=== PATIENT | male | born 1985 | race African-American/Black ===

== ENCOUNTER 2018-07-15 17:10 | Inpatient (IN) | payer MEDICAID, OTHER ==
[~2018-07-15] VITALS: Ht 165.1 cm; Wt 46.9 kg
--- NOTE | 2018-07-15 17:54 | Emergency Room Report ---
History of Present Illness General Chief Complaint: General Complaint Source: Patient (Maranda Lucero) Present Illness HPI 32-year-old male presents to the emergency department brought by [employer] for alleged danger to himself per officer. EMS was called to respond to recall of a person walking in and out of the street. Patient is poorly "cooperative and answering questions and therefore has been brought to the emergency department on 5150 hold for danger to himself. Patient denies SI or HI he does report alcohol use he states he did have some today he is unable to detail the amount. He denies pain, chest pain, shortness of breath, hallucinations, delusions, previous psychiatric hospitalizations, or previous suicidal attempts. Patient endorses that he was walking in and out of the street because he was attempting to cross a busy street. (Maranda Lucero) Allergies: Coded Allergies: SULFAMETHOXAZOLE (Verified Allergy, Intermediate, 07/15/18) TRIMETHOPRIM (Verified Allergy, Intermediate, 07/15/18) Patient History Past Medical History: see triage record Past Surgical History: none Pertinent Family History: none Reviewed Nursing Documentation: PMH: Agreed; PSxH: Agreed (Maranda Lucero) Nursing Documentation-PMH History Of Psychiatric Problem: Yes - bipolar (Maranda Lucero) Review of Systems All Other Systems: negative except mentioned in HPI (Maranda Lucero) Physical Exam Vital Signs Date Time Temp Pulse Resp B/P (MAP) Pulse Ox O2 Delivery O2 Flow Rate FiO2 07/15/18 17:07 97.9 110 16 103/65 98 Room Air Sp02 EP Interpretation: reviewed, normal General Appearance: no apparent distress, alert, GCS 15, non-toxic Head: normocephalic, atraumatic Eyes: bilateral eye normal inspection, bilateral eye PERRL ENT: hearing grossly normal, normal voice Neck: full range of motion Respiratory: chest non-tender, lungs clear, normal breath sounds, speaking full sentences Cardiovascular #1: regular rate, rhythm Gastrointestinal: normal bowel sounds, non tender, soft Musculoskeletal: back normal, gait/station normal, normal range of motion, non- tender Neurologic: alert, oriented x3, responsive, motor strength/tone normal, sensory intact, speech normal, grossly normal Psychiatric: no suicidal/homicidal ideation, other - flat affect, not conversational, withdrawn Skin: normal color, no rash, warm/dry, well hydrated Lymphatic: no adenopathy (Maranda Lucero) Medical Decision Making PA Attestation Dr. hammonds is my supervising Physician whom patient management has been discussed with. (Maranda Lucero) Diagnostic Impression: Primary Impression: Behavioral change Additional Impressions: ARF (acute renal failure) Qualified Codes: N17.9 - Acute kidney failure, unspecified Dehydration Diarrhea in adult patient ER Course 32-year-old male presents to the emergency department brought by [employer] for alleged danger to himself per officer. EMS was called to respond to recall of a person walking in and out of the street. Patient is poorly "cooperative and answering questions and therefore has been brought to the emergency department on 5150 hold for danger to himself. Patient denies SI or HI he does report alcohol use he states he did have some today he is unable to detail the amount. He denies pain, chest pain, shortness of breath, hallucinations, delusions, previous psychiatric hospitalizations, or previous suicidal attempts. Patient endorses that he was walking in and out of the street because he was attempting to cross a busy street. Pt has flat affect. non-aggressive, normal though process, and normal memory. Ddx considered but are not limited to OD, SI/HI, psychosis, UTI, intoxication Vital signs: are WNL, pt. is afebrile H&PE are most consistent with behavioral/mental health issue ORDERS: -CBC, CMP: Pancytopenia, mild hyponatremia, hypoglycemia : 57, ELEVATED Cr: 3.2 and BUN 20 -UA: negative for infection/ unremarkable see results attached. -UDS: Negative -Salicylates and Acetaminophen -WNL -Serum ETOH - No evidence of acute intoxication ED INTERVENTIONS: - Ativan 1mg IM - NS 1000cc x 2 bolus -dextrose 50% 25 cc IV - Calcium Gluconate IV DISPOSITION: patient is medically cleared and will be under ED observation awaiting psychiatric valuation for final disposition. CURRENTLY ON 5150 HOLD Labs Test 07/15/18 17:32 07/15/18 17:38 07/15/18 22:30 Urine Color Pale yellow Urine Appearance Clear Urine pH 6.5 (4.5-8.0) Urine Specific [place] 1.010 (1.005-1.035) Urine Protein 4+ (NEGATIVE) Urine Glucose (UA) Negative (NEGATIVE) Urine Ketones Negative (NEGATIVE) Urine Blood 3+ (NEGATIVE) Urine Nitrite Negative (NEGATIVE) Urine Bilirubin Negative (NEGATIVE) Urine Urobilinogen Normal MG/DL (0.0-1.0) Urine Leukocyte Esterase Negative (NEGATIVE) Urine RBC 2-4 /HPF (0 - 0) Urine WBC 0-2 /HPF (0 - 0) Urine Squamous Epithelial Cells None /LPF (NONE/OCC) Urine Bacteria Few /HPF (NONE) White Blood Count 8.2 K/UL (4.8-10.8) Red Blood Count 3.54 M/UL (4.70-6.10) Hemoglobin 10.0 G/DL (14.2-18.0) Hematocrit 31.7 % (42.0-52.0) Mean Corpuscular Volume 90 FL (80-99) Mean Corpuscular Hemoglobin 28.3 PG (27.0-31.0) Mean Corpuscular Hemoglobin Concent 31.5 G/DL (32.0-36.0) Red Cell Distribution Width 14.8 % (11.6-14.8) Platelet Count 165 K/UL (150-450) Mean Platelet Volume 7.9 FL (6.5-10.1) Neutrophils (%) (Auto) 80.6 % (45.0-75.0) Lymphocytes (%) (Auto) 6.4 % (20.0-45.0) Monocytes (%) (Auto) 9.8 % (1.0-10.0) Eosinophils (%) (Auto) 0.4 % (0.0-3.0) Basophils (%) (Auto) 2.8 % (0.0-2.0) Anion Gap 10 mmol/L (5-15) Total Bilirubin 0.1 MG/DL (0.2-1.0) Aspartate Amino Transf (AST/SGOT) 30 U/L (15-37) Alanine Aminotransferase (ALT/SGPT) 39 U/L (12-78) Alkaline Phosphatase 129 U/L (46-116) Total Creatine Kinase 189 U/L (26-308) Total Protein 6.7 G/DL (6.4-8.2) Albumin 1.3 G/DL (3.4-5.0) Globulin 5.4 g/dL Albumin/Globulin Ratio 0.2 (1.0-2.7) Salicylates Level 2.5 ug/mL (2.8-20) Urine Opiates Screen Negative (NEGATIVE) Acetaminophen Level < 2 MCG/ML (10-30) Urine Barbiturates Screen Negative (NEGATIVE) Phencyclidine (PCP) Screen Negative (NEGATIVE) Urine Amphetamines Screen Negative (NEGATIVE) Urine Benzodiazepines Screen Negative (NEGATIVE) Urine Cocaine Screen Negative (NEGATIVE) Urine Marijuana (THC) Screen Negative (NEGATIVE) Serum Alcohol 3 mg/dL (Maranda Lucero) ER Course Patient signout to me. Police was called initially because he was in the bathroom of a bar for over one hour. When he came out he was shaky and disoriented. He was too traffic. For this reason he was face on the 5150. He was also covered in feces. He was tachycardic in the ER. Improved with IV fluid. He continued to have profuse diarrhea here. He show evidence of acute renal failure and dehydration. Because of this, I will admit patient for IV hydration. Stool cultures sent. (Cullen Hong MD) EKG Diagnostic Results EP Interpretation: Dr. Vera Rate: tachycardiac - 127 bpm Rhythm: NSR ST Segments: no acute changes ASA given to the pt in ED: No PA Scribe Text This Interpretation was scribed by GLADYS Lucero. (Maranda Lucero) Last Vital Signs Date Time Temp Pulse Resp B/P (MAP) Pulse Ox O2 Delivery O2 Flow Rate FiO2 07/15/18 17:23 110 16 Room Air 07/15/18 17:07 97.9 103/65 98 (Maranda Lucero) Status: improved (Cullen Hong MD) Disposition: ADMITTED INPATIENT Condition: Serious Signed Out To: Dr. Reyes (Maranda Luceor) Referrals: NOT CHOSEN IPA/,REFERRING (PCP) Maranda Lucero Jul 15, 2018 17:54 Cullen Hong MD Jul 16, 2018 03:18
[2018-07-15 18:03] LABS: BASOPHILS % (AUTO) 2.8 % (0.0-2.0); EOSINOPHILS % (AUTO) 0.4 % (0.0-3.0); HEMATOCRIT 31.7 % (42.0-52.0); LYMPHOCYTES % (AUTO) 6.4 % (20.0-45.0); MEAN CORPUSCULAR VOLUME 90 FL (80-99); MONOCYTES % (AUTO) 9.8 % (1.0-10.0); NEUTROPHILS % (AUTO) 80.6 % (45.0-75.0); PLATELET COUNT 165 K/UL (150-450); RED BLOOD COUNT 3.54 M/UL (4.70-6.10); RED CELL DISTRIBUTION WIDTH 14.8 % (11.6-14.8); WHITE BLOOD COUNT 8.2 K/UL (4.8-10.8)
[2018-07-15 18:05] LABS: ANION GAP 10 mmol/L (5-15); BLOOD UREA NITROGEN 21 mg/dL (7-18); CALCIUM 6.6 MG/DL (8.5-10.1); CARBON DIOXIDE 17 MMOL/L (21-32); CHLORIDE 106 MMOL/L (98-107); CREATININE 3.2 MG/DL (0.55-1.30); POTASSIUM 4.3 MMOL/L (3.5-5.1); SODIUM 133 MMOL/L (136-145)
[2018-07-15 18:09] LABS: ALANINE AMINOTRANSFERASE 39 U/L (12-78); ALBUMIN 1.3 G/DL (3.4-5.0); ALBUMIN/GLOBULIN RATIO 0.2 (1.0-2.7); ALKALINE PHOSPHATASE 129 U/L (46-116); ASPARTATE AMINO TRANSFERASE 30 U/L (15-37); BILIRUBIN,TOTAL 0.1 MG/DL (0.2-1.0); CREATINE KINASE 189 U/L (26-308)
[2018-07-15 18:28] LABS: APPEARANCE,URINE CLEAR; BILIRUBIN, URINE NEGATIVE (NEGATIVE); COLOR,URINE PALE YELLOW; GLUCOSE, URINE (UA) NEGATIVE (NEGATIVE); KETONES,URINE NEGATIVE (NEGATIVE); LEUKOCYTE ESTERASE ,URINE NEGATIVE (NEGATIVE); NITRITE,URINE NEGATIVE (NEGATIVE); PH,URINE 6.5 (4.5-8.0); PROTEIN,URINE 4+ (NEGATIVE); UROBILINOGEN,URINE NORMAL MG/DL (0.0-1.0)
[2018-07-15 18:43] VITALS: BP 107/66
[2018-07-15] MEDS ORDERED: Calcium Gluconate 10% 1 GM in NS 110 ML IVPB ONE (19:00)
[2018-07-15] MEDS ORDERED: LORazepam Inj 2mg/ml 1ml IM ONE (19:15)
[2018-07-15 20:30] VITALS: BP 94/62
[2018-07-15 21:30] VITALS: BP 100/58
[2018-07-15 22:57] LABS: ANION GAP 10 mmol/L (5-15); BLOOD UREA NITROGEN 17 mg/dL (7-18); CALCIUM 6.2 MG/DL (8.5-10.1); CARBON DIOXIDE 16 MMOL/L (21-32); CHLORIDE 114 MMOL/L (98-107); CREATININE 2.5 MG/DL (0.55-1.30); POTASSIUM 3.5 MMOL/L (3.5-5.1); SODIUM 140 MMOL/L (136-145)
[2018-07-15 23:30] VITALS: BP 107/58
[2018-07-16] VITALS (8 sets, daily range): BP systolic 89–130; BP diastolic 51–73
[2018-07-16] MEDS ORDERED: NKM (07:32)
[2018-07-16] MEDS ORDERED: LORazepam 1mg tab ORAL PRN (11:15)
--- NOTE | 2018-07-16 14:01 | Diagnostic Imaging Report ---
EXAM: US Retroperitoneal Complete, Renal CLINICAL HISTORY: RENAL-A TECHNIQUE: Real-time ultrasound of the retroperitoneum (complete) with image documentation. COMPARISON: No relevant prior studies available. FINDINGS: Right kidney: Right kidney measures 12 x 6.3 x 6.4 cm. Increased echogenicity. Punctate calcification. Mild fullness of the collecting system. Mild right perinephric fluid. No stones. Left kidney: Left kidney measures 11.5 x 5.0 x 5.5 cm. Increased echogenicity. Mild fullness of the collecting system. No stones. Bladder: Bilateral ureteral jets are seen. IMPRESSION: 1. Increased echogenicity bilateral kidneys, maybe medical renal disease. 2. Mild bilateral hydronephrosis. Trace right perinephric fluid. 3. Tiny nonobstructive right renal stone.
--- NOTE | 2018-07-16 17:26 | Consultation ---
Consult Note Consult Note asked to eval for renal failure 32-year-old male presents to the emergency department brought by [employer] for alleged danger to himself per officer. EMS was called to respond to recall of a person walking in and out of the street. Patient is poorly "cooperative and answering questions and therefore has been brought to the emergency department on 5150 hold for danger to himself. Patient denies SI or HI he does report alcohol use he states he did have some today he is unable to detail the amount. He denies pain, chest pain, shortness of breath, hallucinations, delusions, previous psychiatric hospitalizations, or previous suicidal attempts. Patient endorses that he was walking in and out of the street because he was attempting to Coded Allergies: SULFAMETHOXAZOLE (Verified Allergy, Intermediate, 07/15/18) TRIMETHOPRIM (Verified Allergy, Intermediate, 07/15/18) History Of Psychiatric Problem: Yes - bipolar interviewed poor historian examined unkept ! data reviewed Assessment/Plan renal failure ? Acute on Chronic Dehydration Anemia proteinuria and hypoalbuminemia HypoCalcemia corrects for low Albumin hydrate anemia tidwell monitor renal paraneters avoid nephrotoxics urine studies Johnson Thakkar MD Jul 16, 2018 17:26
--- NOTE | 2018-07-16 20:15 | History and Physical Report ---
DATE OF ADMISSION: 07/16/2018 HISTORY OF PRESENT ILLNESS: This is young 32-year-old male, came to the emergency room. The police brought him in to the emergency room for behavioral changes. The patient currently does not know why he is in here. He was also found to have dehydration and some diarrhea. PAST MEDICAL HISTORY: The patient unable to give history. PHYSICAL EXAMINATION: GENERAL: This is a young male, who is currently in the bed, comfortable, alert, and oriented x3. VITAL SIGNS: Blood pressure is 110/73, pulse 108, respiration is 16, and temperature is 98.8 degrees. HEENT: NAD. CHEST: Bilaterally clear. CARDIOVASCULAR: Regular rhythm. No gallop. No murmur. ABDOMEN: Soft. Positive bowel sounds. EXTREMITIES: CCE. NEUROLOGICAL: No focal deficit. LABORATORY DATA: White counts are 8.2, hemoglobin 10, hematocrit 32, and platelets are 165,000. Chemistry panel, BUN 17; creatinine 2.5; yesterday creatinine 3.2, currently 2.5; sodium 140; and potassium 3.5. ASSESSMENT: 1. Altered mental status. 2. Confusion. 3. Psychosis. 4. Renal failure. PLAN: We will continue added IV fluid. Nephrology consult and psych consult. Also, added Ativan p.r.n. for agitation. Duong Christine M.D. DR: ALCON JOB#: [id number] CC: BRIAN
[2018-07-17] VITALS: BP 130/71
[2018-07-17 04:00] VITALS: BP 126/69
[2018-07-17 05:53] LABS: BASOPHILS % (AUTO) 0.9 % (0.0-2.0); EOSINOPHILS % (AUTO) 1.4 % (0.0-3.0); HEMOGLOBIN 9.1 G/DL (14.2-18.0); LYMPHOCYTES % (AUTO) 29.4 % (20.0-45.0); MEAN CORPUSCULAR VOLUME 89 FL (80-99); MONOCYTES % (AUTO) 11.5 % (1.0-10.0); NEUTROPHILS % (AUTO) 56.8 % (45.0-75.0); PLATELET COUNT 157 K/UL (150-450); RED BLOOD COUNT 3.26 M/UL (4.70-6.10); RED CELL DISTRIBUTION WIDTH 14.9 % (11.6-14.8); WHITE BLOOD COUNT 4.3 K/UL (4.8-10.8)
[2018-07-17 06:32] LABS: % IRON SATURATION 96 % (15-50); IRON 72 ug/dL (50-175); TOTAL IRON BINDING CAPACITY 75 ug/dL (250-450)
[2018-07-17 06:40] LABS: CREATINE KINASE 155 U/L (26-308); GAMMA GLUTAMYL TRANSPEPTIDASE 85 U/L (5-85); PHOSPHORUS 3.2 MG/DL (2.5-4.9)
[2018-07-17 06:45] LABS: ALANINE AMINOTRANSFERASE 59 U/L (12-78); ALBUMIN/GLOBULIN RATIO 0.2 (1.0-2.7); ALKALINE PHOSPHATASE 132 U/L (46-116); ANION GAP 9 mmol/L (5-15); ASPARTATE AMINO TRANSFERASE 57 U/L (15-37); BILIRUBIN,TOTAL 0.2 MG/DL (0.2-1.0); BLOOD UREA NITROGEN 20 mg/dL (7-18); CALCIUM 7.7 MG/DL (8.5-10.1); CARBON DIOXIDE 18 MMOL/L (21-32); CHLORIDE 113 MMOL/L (98-107); CHOLESTEROL 221 MG/DL (< 200); CREATININE 3.3 MG/DL (0.55-1.30); FERRITIN 1615 NG/ML (8-388); HDL CHOLESTEROL 73 MG/DL (40-60); POTASSIUM 4.9 MMOL/L (3.5-5.1); SODIUM 140 MMOL/L (136-145); TRIGLYCERIDES 249 MG/DL (30-150)
[2018-07-17 07:34] VITALS: BP 128/79
[2018-07-17] MEDS ORDERED: LORazepam 1mg tab ORAL PRN (11:15)
[2018-07-17 12:00] VITALS: BP 118/60
--- NOTE | 2018-07-17 13:30 | Progress Note ---
DATE: 07/17/2018 SUBJECTIVE: This is a young male. Currently awake, comfortable, confused. OBJECTIVE: VITAL SIGNS: Blood pressure 128/79, pulse 82, no fever. CHEST: Bilaterally clear. CARDIOVASCULAR: Regular rhythm. ABDOMEN: Soft. EXTREMITIES: No CCE. NEUROLOGIC: The patient is in no focal deficit. LABORATORY DATA: His hemoglobin slightly dropped from 10 to 9. Chemistry panel, BUN 28, creatinine 3.3. ASSESSMENT AND PLAN: 1. Acute renal failure. 2. Psychosis, improved. 3. Depression. Continue current psychotropic, IV fluids, psych is on consult. Duong Christine M.D. DR: FRANCOIS JOB#: [id number] CC:
--- NOTE | 2018-07-17 14:30 | Nephrology Progress Note ---
Assessment/Plan Problem List: (1) ARF (acute renal failure) (2) Dehydration (3) Anemia (4) HIV disease (5) Elevated hemoglobin A1c (6) Proteinuria Assessment renal failure ? Acute on Chronic Dehydration Anemia proteinuria and hypoalbuminemia HypoCalcemia corrects for low Albumin Plan hydrate 24 h urine protein kidney BELKIS anemia tidwell monitor renal paraneters avoid nephrotoxics urine studies ID advise? Subjective ROS Limited/Unobtainable: No Constitutional: Reports: malaise Objective Objective Last 24 Hour Vital Signs Date Time Temp Pulse Resp B/P (MAP) Pulse Ox O2 Delivery O2 Flow Rate FiO2 07/17/18 12:00 97.3 85 17 118/60 (79) 95 07/17/18 09:00 Room Air 07/17/18 08:32 98.3 07/17/18 07:34 98.3 82 16 128/79 (95) 100 07/17/18 04:00 98.2 76 18 126/69 (88) 100 76 07/17/18 00:00 98.2 78 18 130/71 (90) 100 78 07/16/18 21:00 Room Air 07/16/18 20:00 98.1 100 18 128/64 (85) 99 100 07/16/18 16:00 97.8 95 18 130/70 (90) 97 95 Intake and Output 07/16/18 07/17/18 18:59 06:59 Intake Total 1200 ml 400 ml Output Total 1800 ml 1650 ml Balance -600 ml -1250 ml Intake Oral 1200 ml 400 ml Output Urine Total 1800 ml 1650 ml # Voids 2 Laboratory Tests 07/16/18 17:48: C-Reactive Protein, Quantitative < 0.4, HIV (1&2) Antibody Rapid Preliminary positiveH 07/16/18 18:30: Urine Random Sodium 108 07/17/18 04:00: Urine Eosinophils None seen 07/17/18 05:15: White Blood Count 4.3L, Red Blood Count 3.26L, Hemoglobin 9.1L, Hematocrit 29.0L , Mean Corpuscular Volume 89, Mean Corpuscular Hemoglobin 27.9, Mean Corpuscular Hemoglobin Concent 31.5L, Red Cell Distribution Width 14.9H, Platelet Count 157, Mean Platelet Volume 7.5, Neutrophils (%) (Auto) 56.8, Lymphocytes (%) (Auto) 29.4, Monocytes (%) (Auto) 11.5H, Eosinophils (%) (Auto) 1.4, Basophils (%) (Auto) 0.9, Sodium Level 140, Potassium Level 4.9, Chloride Level 113H, Carbon Dioxide Level 18L, Anion Gap 9, Blood Urea Nitrogen 20H, Creatinine 3.3H, Estimat Glomerular Filtration Rate 26.8, Glucose Level 87, Hemoglobin A1c 6.4H, Uric Acid 5.3, Calcium Level 7.7#L, Phosphorus Level 3.2, Magnesium Level 1.4L, Iron Level 72, Total Iron Binding Capacity 75L, Percent Iron Saturation 96H, Unsaturated Iron Binding 3L, Ferritin 1615H, Total Bilirubin 0.2, Gamma Glutamyl Transpeptidase 85, Aspartate Amino Transf (AST/ SGOT) 57H, Alanine Aminotransferase (ALT/SGPT) 59, Alkaline Phosphatase 132H, Total Creatine Kinase 155, Pro-B-Type Natriuretic Peptide 1787H, Total Protein 6.0L, Albumin 1.0L, Globulin 5.0, Albumin/Globulin Ratio 0.2L, Triglycerides Level 249H, Cholesterol Level 221H, LDL Cholesterol 118H, HDL Cholesterol 73H, Cholesterol/HDL Ratio 3.0L, Vitamin B12 Level 472, Folate 9.5, Thyroid Stimulating Hormone (TSH) 1.038 Height (Feet): 5 Height (Inches): 10.00 Weight (Pounds): 140 General Appearance: no apparent distress Cardiovascular: tachycardia Respiratory/Chest: decreased breath sounds Abdomen: distended Johnson Thakkar MD Jul 17, 2018 14:30
[2018-07-17 15:51] VITALS: BP 122/68
[2018-07-17 19:36] VITALS: BP 111/72
[2018-07-17] MEDS ORDERED: Tamsulosin 0.4mg cap ORAL SCH (21:00)
--- NOTE | 2018-07-17 21:58 | Consultation ---
History of Present Illness General Chief Complaint: General Complaint Present Illness HPI 32-year-old male with hx of depression and mmp including hiv and alcohol abuse presents to the emergency department brought by [employer] for danger to himself. The pt was placed on a hold for dts. the pt was admitted to med floor. the pt stated that he was homeless and has no place to go. the pt stated that he hears voices at times. the pt was unable to elaborate. the pt stated that he was suicidal but no plan. the pt stopped taking all his meds, including his HAART meds. the pt stated that he ran out of meds. the pt has been abusing alcohol. the pt denied using illicit drugs including MJ. Allergies: Coded Allergies: SULFAMETHOXAZOLE (Verified Allergy, Intermediate, 07/15/18) TRIMETHOPRIM (Verified Allergy, Intermediate, 07/15/18) Medication History Scheduled No Known Medications* (NKM - No Known Medications*), 0 ., (Reported) Patient History History Provided By: Patient, Medical Record, PMD Healthcare decision maker Resuscitation status Full Code Advanced Directive on File Past Medical/Surgical History Past Medical/Surgical History: (1) Dehydration (2) Diarrhea in adult patient (3) Behavioral change (4) ARF (acute renal failure) (5) Anemia (6) HIV disease (7) Elevated hemoglobin A1c (8) Proteinuria Review of Systems Psychiatric: Reports: prior hx, anxiety, depressed feelings, emotional problems Physical Exam General Appearance: no apparent distress, alert Neurologic: oriented x 3, responsive, depressed affect Last 24 Hour Vital Signs Date Time Temp Pulse Resp B/P (MAP) Pulse Ox O2 Delivery O2 Flow Rate FiO2 07/17/18 21:00 Room Air 07/17/18 19:36 97.7 92 18 111/72 (85) 97 07/17/18 15:51 97.8 84 18 122/68 (86) 100 07/17/18 12:00 97.3 85 17 118/60 (79) 95 07/17/18 09:00 Room Air 07/17/18 08:32 98.3 07/17/18 07:34 98.3 82 16 128/79 (95) 100 07/17/18 04:00 98.2 76 18 126/69 (88) 100 76 07/17/18 00:00 98.2 78 18 130/71 (90) 100 78 Intake and Output 07/16/18 07/17/18 19:00 07:00 Intake Total 1200 ml 400 ml Output Total 1800 ml 1650 ml Balance -600 ml -1250 ml Intake Oral 1200 ml 400 ml Output Urine Total 1800 ml 1650 ml # Voids 2 Laboratory Tests Test 07/17/18 04:00 07/17/18 05:15 Urine Eosinophils None seen (NONE SEEN) White Blood Count 4.3 K/UL (4.8-10.8) L Red Blood Count 3.26 M/UL (4.70-6.10) L Hemoglobin 9.1 G/DL (14.2-18.0) L Hematocrit 29.0 % (42.0-52.0) L Mean Corpuscular Volume 89 FL (80-99) Mean Corpuscular Hemoglobin 27.9 PG (27.0-31.0) Mean Corpuscular Hemoglobin Concent 31.5 G/DL (32.0-36.0) L Red Cell Distribution Width 14.9 % (11.6-14.8) H Platelet Count 157 K/UL (150-450) Mean Platelet Volume 7.5 FL (6.5-10.1) Neutrophils (%) (Auto) 56.8 % (45.0-75.0) Lymphocytes (%) (Auto) 29.4 % (20.0-45.0) Monocytes (%) (Auto) 11.5 % (1.0-10.0) H Eosinophils (%) (Auto) 1.4 % (0.0-3.0) Basophils (%) (Auto) 0.9 % (0.0-2.0) Sodium Level 140 MMOL/L (136-145) Potassium Level 4.9 MMOL/L (3.5-5.1) Chloride Level 113 MMOL/L (98-107) H Carbon Dioxide Level 18 MMOL/L (21-32) L Anion Gap 9 mmol/L (5-15) Blood Urea Nitrogen 20 mg/dL (7-18) H Creatinine 3.3 MG/DL (0.55-1.30) H Estimat Glomerular Filtration Rate 26.8 mL/min (>60) Glucose Level 87 MG/DL (74-106) Hemoglobin A1c 6.4 % (4.3-6.0) H Uric Acid 5.3 MG/DL (2.6-7.2) Calcium Level 7.7 MG/DL (8.5-10.1) #L Phosphorus Level 3.2 MG/DL (2.5-4.9) Magnesium Level 1.4 MG/DL (1.8-2.4) L Iron Level 72 ug/dL (50-175) Total Iron Binding Capacity 75 ug/dL (250-450) L Percent Iron Saturation 96 % (15-50) H Unsaturated Iron Binding 3 ug/dL (112-346) L Ferritin 1615 NG/ML (8-388) H Total Bilirubin 0.2 MG/DL (0.2-1.0) Gamma Glutamyl Transpeptidase 85 U/L (5-85) Aspartate Amino Transf (AST/SGOT) 57 U/L (15-37) H Alanine Aminotransferase (ALT/SGPT) 59 U/L (12-78) Alkaline Phosphatase 132 U/L (46-116) H Total Creatine Kinase 155 U/L (26-308) Pro-B-Type Natriuretic Peptide 1787 pg/mL (0-125) H Total Protein 6.0 G/DL (6.4-8.2) L Albumin 1.0 G/DL (3.4-5.0) L Globulin 5.0 g/dL Albumin/Globulin Ratio 0.2 (1.0-2.7) L Triglycerides Level 249 MG/DL (30-150) H Cholesterol Level 221 MG/DL (< 200) H LDL Cholesterol 118 mg/dL (<100) H HDL Cholesterol 73 MG/DL (40-60) H Cholesterol/HDL Ratio 3.0 (3.3-4.4) L Vitamin B12 Level 472 PG/ML (193-986) Folate 9.5 NG/ML (8.6-58.9) Thyroid Stimulating Hormone (TSH) 1.038 uiU/mL (0.358-3.740) Height (Feet): 5 Height (Inches): 10.00 Weight (Pounds): 140 Medications Current Medications Medications (Trade) Dose Ordered Sig/Bridget Route PRN Reason Start Time Stop Time Status Last Admin Dose Admin Acetaminophen (Tylenol) 650 mg Q4H PRN ORAL Mild Pain/Temp > 100.5 07/17/18 06:45 08/15/18 10:44 07/17/18 08:02 Lorazepam (Ativan) 1 mg Q6H PRN ORAL For Anxiety 07/17/18 11:15 07/23/18 11:14 Sodium Chloride 1,000 ml @ 100 mls/hr Q10H IV 07/17/18 06:15 08/15/18 10:44 07/17/18 17:04 Tamsulosin HCl (Flomax) 0.4 mg BEDTIME ORAL 07/17/18 21:00 08/16/18 20:59 07/17/18 21:05 Assessment/Plan Problem List: (1) MDD (major depressive disorder), recurrent episode ICD Codes: F33.9 - Major depressive disorder, recurrent, unspecified SNOMED: 736910681 (2) Alcohol abuse ICD Codes: F10.10 - Alcohol abuse, uncomplicated SNOMED: 81794804 Assessment/Plan larry terry provided ro/Zhanna Correa MD Jul 17, 2018 21:58
--- NOTE | 2018-07-17 22:00 | Consultation ---
History of Present Illness General Chief Complaint: General Complaint Present Illness Allergies: Coded Allergies: SULFAMETHOXAZOLE (Verified Allergy, Intermediate, 07/15/18) TRIMETHOPRIM (Verified Allergy, Intermediate, 07/15/18) Medication History Scheduled No Known Medications* (NKM - No Known Medications*), 0 ., (Reported) Patient History Healthcare decision maker Resuscitation status Full Code Advanced Directive on File Physical Exam Last 24 Hour Vital Signs Date Time Temp Pulse Resp B/P (MAP) Pulse Ox O2 Delivery O2 Flow Rate FiO2 07/17/18 21:00 Room Air 07/17/18 19:36 97.7 92 18 111/72 (85) 97 07/17/18 15:51 97.8 84 18 122/68 (86) 100 07/17/18 12:00 97.3 85 17 118/60 (79) 95 07/17/18 09:00 Room Air 07/17/18 08:32 98.3 07/17/18 07:34 98.3 82 16 128/79 (95) 100 07/17/18 04:00 98.2 76 18 126/69 (88) 100 76 07/17/18 00:00 98.2 78 18 130/71 (90) 100 78 Intake and Output 07/16/18 07/17/18 19:00 07:00 Intake Total 1200 ml 400 ml Output Total 1800 ml 1650 ml Balance -600 ml -1250 ml Intake Oral 1200 ml 400 ml Output Urine Total 1800 ml 1650 ml # Voids 2 Laboratory Tests Test 07/17/18 04:00 07/17/18 05:15 Urine Eosinophils None seen (NONE SEEN) White Blood Count 4.3 K/UL (4.8-10.8) L Red Blood Count 3.26 M/UL (4.70-6.10) L Hemoglobin 9.1 G/DL (14.2-18.0) L Hematocrit 29.0 % (42.0-52.0) L Mean Corpuscular Volume 89 FL (80-99) Mean Corpuscular Hemoglobin 27.9 PG (27.0-31.0) Mean Corpuscular Hemoglobin Concent 31.5 G/DL (32.0-36.0) L Red Cell Distribution Width 14.9 % (11.6-14.8) H Platelet Count 157 K/UL (150-450) Mean Platelet Volume 7.5 FL (6.5-10.1) Neutrophils (%) (Auto) 56.8 % (45.0-75.0) Lymphocytes (%) (Auto) 29.4 % (20.0-45.0) Monocytes (%) (Auto) 11.5 % (1.0-10.0) H Eosinophils (%) (Auto) 1.4 % (0.0-3.0) Basophils (%) (Auto) 0.9 % (0.0-2.0) Sodium Level 140 MMOL/L (136-145) Potassium Level 4.9 MMOL/L (3.5-5.1) Chloride Level 113 MMOL/L (98-107) H Carbon Dioxide Level 18 MMOL/L (21-32) L Anion Gap 9 mmol/L (5-15) Blood Urea Nitrogen 20 mg/dL (7-18) H Creatinine 3.3 MG/DL (0.55-1.30) H Estimat Glomerular Filtration Rate 26.8 mL/min (>60) Glucose Level 87 MG/DL (74-106) Hemoglobin A1c 6.4 % (4.3-6.0) H Uric Acid 5.3 MG/DL (2.6-7.2) Calcium Level 7.7 MG/DL (8.5-10.1) #L Phosphorus Level 3.2 MG/DL (2.5-4.9) Magnesium Level 1.4 MG/DL (1.8-2.4) L Iron Level 72 ug/dL (50-175) Total Iron Binding Capacity 75 ug/dL (250-450) L Percent Iron Saturation 96 % (15-50) H Unsaturated Iron Binding 3 ug/dL (112-346) L Ferritin 1615 NG/ML (8-388) H Total Bilirubin 0.2 MG/DL (0.2-1.0) Gamma Glutamyl Transpeptidase 85 U/L (5-85) Aspartate Amino Transf (AST/SGOT) 57 U/L (15-37) H Alanine Aminotransferase (ALT/SGPT) 59 U/L (12-78) Alkaline Phosphatase 132 U/L (46-116) H Total Creatine Kinase 155 U/L (26-308) Pro-B-Type Natriuretic Peptide 1787 pg/mL (0-125) H Total Protein 6.0 G/DL (6.4-8.2) L Albumin 1.0 G/DL (3.4-5.0) L Globulin 5.0 g/dL Albumin/Globulin Ratio 0.2 (1.0-2.7) L Triglycerides Level 249 MG/DL (30-150) H Cholesterol Level 221 MG/DL (< 200) H LDL Cholesterol 118 mg/dL (<100) H HDL Cholesterol 73 MG/DL (40-60) H Cholesterol/HDL Ratio 3.0 (3.3-4.4) L Vitamin B12 Level 472 PG/ML (193-986) Folate 9.5 NG/ML (8.6-58.9) Thyroid Stimulating Hormone (TSH) 1.038 uiU/mL (0.358-3.740) Height (Feet): 5 Height (Inches): 10.00 Weight (Pounds): 140 Medications Current Medications Medications (Trade) Dose Ordered Sig/Bridget Route PRN Reason Start Time Stop Time Status Last Admin Dose Admin Acetaminophen (Tylenol) 650 mg Q4H PRN ORAL Mild Pain/Temp > 100.5 07/17/18 06:45 08/15/18 10:44 07/17/18 08:02 Lorazepam (Ativan) 1 mg Q6H PRN ORAL For Anxiety 07/17/18 11:15 07/23/18 11:14 Sodium Chloride 1,000 ml @ 100 mls/hr Q10H IV 07/17/18 06:15 08/15/18 10:44 07/17/18 17:04 Tamsulosin HCl (Flomax) 0.4 mg BEDTIME ORAL 07/17/18 21:00 08/16/18 20:59 07/17/18 21:05 Assessment/Plan Assessment/Plan Hematology/Oncology Consultation Requesting MD: Emmett Watters Date of Service: 07/17/18 Reason for consultation: Anemia HPI:This is a 32-year-old male presents to the emergency department brought by [employer] for alleged danger to himself per officer. EMS was called to respond to recall of a person walking in and out of the street. Patient is poorly "cooperative and answering questions and therefore has been brought to the emergency department on 5150 hold for danger to himself. Patient denies SI or HI he does report alcohol use he states he did have some today he is unable to detail the amount. He denies pain, chest pain, shortness of breath, hallucinations, delusions, previous psychiatric hospitalizations, or previous suicidal attempts. Hematology/Oncology was consulted for Anemia, Hgb 10. Allergies: SULFAMETHOXAZOLE , TRIMETHOPRIM PAST MEDICAL HISTORY: The patient unable to give history. HOME MEDS : reviewed PHYSICAL EXAMINATION: GENERAL: This is a young male, who is currently in the bed, comfortable, alert, and oriented x3. VITAL SIGNS: Blood pressure is 110/73, pulse 108, respiration is 16, and temperature is 98.8 degrees. HEENT: NAD. CHEST: Bilaterally clear. CARDIOVASCULAR: Regular rhythm. No gallop. No murmur. ABDOMEN: Soft. Positive bowel sounds. EXTREMITIES: CCE. NEUROLOGICAL: No focal deficit. LABORATORY DATA: White counts are 8.2, hemoglobin 10, hematocrit 32, and platelets are 165,000. Chemistry panel, BUN 17; creatinine 2.5; yesterday creatinine 3.2, currently 2.5; sodium 140; and potassium 3.5. ASSESSMENT/RECOMMENDATIONS: # Anemia of chronic disease (or of iron deficiency) due to underlying chronic medical issues, multifactorial --> Anemia workup has been ordered --> No evidence of hemolysis is noted, peripheral smear has been reviewed. --> Hgb goal >7. Transfuse prn. --> Epogen or iron at this time is not particularly indicated --> Medications have been reviewed #ARF (acute renal failure) --> Nephrology consult # Dehydration --->we will continue added IV fluid # HIV disease # Elevated hemoglobin A1c # Proteinuria The timing of this note does not necessarily reflect the time of the patient was seen Greatly appreciate consultation! Eliud Lorenz MD Jul 17, 2018 22:00
[2018-07-18] VITALS: BP 131/66
[2018-07-18 04:00] VITALS: BP 125/69
[2018-07-18 09:00] VITALS: BP 113/66
[2018-07-18 12:00] VITALS: BP 118/65
--- NOTE | 2018-07-18 13:13 | Nephrology Progress Note ---
Assessment/Plan Problem List: (1) ARF (acute renal failure) (2) Dehydration (3) Anemia (4) HIV disease (5) Elevated hemoglobin A1c (6) Proteinuria Assessment renal failure ? Acute on Chronic Dehydration Anemia proteinuria and hypoalbuminemia HypoCalcemia corrects for low Albumin Plan hydrate 24 h urine protein anemia tidwell monitor renal paraneters avoid nephrotoxics urine studies ID advise? BELKIS: 1. Increased echogenicity bilateral kidneys, maybe medical renal disease. 2. Mild bilateral hydronephrosis. Trace right perinephric fluid. 3. Tiny nonobstructive right renal stone. Subjective ROS Limited/Unobtainable: No Constitutional: Reports: malaise Objective Objective Last 24 Hour Vital Signs Date Time Temp Pulse Resp B/P (MAP) Pulse Ox O2 Delivery O2 Flow Rate FiO2 07/18/18 12:00 98.3 89 19 118/65 (82) 96 07/18/18 09:00 Room Air 07/18/18 09:00 98.6 96 20 113/66 (82) 96 07/18/18 04:00 97.7 71 18 125/69 (87) 98 07/18/18 00:00 97.9 85 18 131/66 (87) 98 07/17/18 21:00 Room Air 07/17/18 19:36 97.7 92 18 111/72 (85) 97 07/17/18 15:51 97.8 84 18 122/68 (86) 100 Intake and Output 07/17/18 07/18/18 18:59 06:59 Intake Total 2900 ml 2000 ml Output Total 2200 ml Balance 2900 ml -200 ml Intake Oral 1000 ml IV Total 900 ml 1000 ml Other 2000 ml Output Urine Total 2200 ml # Bowel Movements 4 5 Height (Feet): 5 Height (Inches): 10.00 Weight (Pounds): 140 General Appearance: no apparent distress Cardiovascular: normal rate Abdomen: soft Objective no change Johnson Thakkar MD Jul 18, 2018 13:13
--- NOTE | 2018-07-18 13:14 | General Progress Note ---
Assessment/Plan Problem List: (1) MDD (major depressive disorder), recurrent episode ICD Codes: F33.9 - Major depressive disorder, recurrent, unspecified SNOMED: 059791593 (2) Alcohol abuse ICD Codes: F10.10 - Alcohol abuse, uncomplicated SNOMED: 15962830 Status: stable, progressing Assessment/Plan depakote risperdal provided ro/st Subjective Neurologic/Psychiatric: Reports: anxiety, depressed, emotional problems Allergies: Coded Allergies: SULFAMETHOXAZOLE (Verified Allergy, Intermediate, 07/15/18) TRIMETHOPRIM (Verified Allergy, Intermediate, 07/15/18) Objective Last 24 Hour Vital Signs Date Time Temp Pulse Resp B/P (MAP) Pulse Ox O2 Delivery O2 Flow Rate FiO2 07/18/18 12:00 98.3 89 19 118/65 (82) 96 07/18/18 09:00 Room Air 07/18/18 09:00 98.6 96 20 113/66 (82) 96 07/18/18 04:00 97.7 71 18 125/69 (87) 98 07/18/18 00:00 97.9 85 18 131/66 (87) 98 07/17/18 21:00 Room Air 07/17/18 19:36 97.7 92 18 111/72 (85) 97 07/17/18 15:51 97.8 84 18 122/68 (86) 100 Intake and Output 07/17/18 07/18/18 18:59 06:59 Intake Total 2900 ml 2000 ml Output Total 2200 ml Balance 2900 ml -200 ml Intake Oral 1000 ml IV Total 900 ml 1000 ml Other 2000 ml Output Urine Total 2200 ml # Bowel Movements 4 5 Height (Feet): 5 Height (Inches): 10.00 Weight (Pounds): 140 General Appearance: no apparent distress, alert, thin Neurologic: oriented x 3, responsive, depressed affect Zhanna Tucker MD Jul 18, 2018 13:14
[2018-07-18] MEDS ORDERED: Tamsulosin 0.4mg cap ORAL SCH (13:15)
[2018-07-18 16:00] VITALS: BP 117/68
[2018-07-18] MEDS: Tamsulosin 0.4mg cap ORAL SCH (17:13)
--- NOTE | 2018-07-18 18:15 | Progress Note ---
DATE: 07/18/2018 SUBJECTIVE: This is a young male, came with acute renal failure, altered mental status. The patient is currently doing better, Hemoglobin became low. BUN and creatinine still getting high. ASSESSMENT: 1. Altered mental status. 2. Acute renal failure. 3. Psychosis. PLAN: 1. Continue IV fluid. 2. Nephrology on the case. 3. The patient may need hemodialysis. Duong Christine M.D. DR: Genevieve JOB#: [id number] CC:
[2018-07-18 20:00] VITALS: BP 116/79
--- NOTE | 2018-07-18 20:04 | General Progress Note ---
Assessment/Plan Assessment/Plan ASSESSMENT/RECOMMENDATIONS: # Anemia of chronic disease due to underlying chronic medical issues, multifactorial --> Anemia workup has been ordered and reviewed, and is cw acd --> No evidence of hemolysis is noted, peripheral smear has been reviewed. --> Hgb goal >7. Transfuse prn. --> Epogen or iron at this time is not particularly indicated --> Medications have been reviewed # Leukopenia likely medications or HIV/AIds related --> obtain ID eval on a prn basis # ARF (acute renal failure) --> Nephrology consult --> appreciate recs # Dehydration --->we will continue added IV fluid # HIV disease # Elevated hemoglobin A1c # Proteinuria The timing of this note does not necessarily reflect the time of the patient was seen Greatly appreciate consultation! Subjective HEENT: Denies: no symptoms, eye pain, blurred vision, tearing, double vision, ear pain, ear discharge, nose pain, nose congestion, throat pain, throat swelling, mouth pain, mouth swelling, other Cardiovascular: Denies: no symptoms, chest pain, edema, irregular heart rate, lightheadedness, palpitations, syncope, other Respiratory: Denies: no symptoms, cough, orthopnea, shortness of breath, SOB with excertion, SOB at rest, sputum, stridor, wheezing, other Gastrointestinal/Abdominal: Denies: no symptoms, abdomen distended, abdominal pain, black stools, tarry stools, blood in stool, constipated, diarrhea, difficulty swallowing, nausea, poor appetite, poor fluid intake, rectal bleeding , vomiting, other Genitourinary: Denies: no symptoms, burning, discharge, frequency, flank pain, hematuria, incontinence, pain, urgency, other Neurologic/Psychiatric: Denies: no symptoms, anxiety, depressed, emotional problems, headache, numbness, paresthesia, pre-existing deficit, seizure, tingling, tremors, weakness, other Endocrine: Denies: no symptoms, excessive sweating, flushing, intolerance to cold, intolerance to heat, increased hunger, increased thirst, increased urine, unexplained weight gain, unexplained weight loss, other Hematologic/Lymphatic: Denies: no symptoms, anemia, easy bleeding, easy bruising, other Allergies: Coded Allergies: SULFAMETHOXAZOLE (Verified Allergy, Intermediate, 07/15/18) TRIMETHOPRIM (Verified Allergy, Intermediate, 07/15/18) Subjective 2/4: no events, platelets stable, hiv was positive, renal evaluated, hgb lower today Objective Last 24 Hour Vital Signs Date Time Temp Pulse Resp B/P (MAP) Pulse Ox O2 Delivery O2 Flow Rate FiO2 07/18/18 16:00 98.8 92 20 117/68 (84) 98 07/18/18 12:00 98.3 89 19 118/65 (82) 96 07/18/18 09:00 Room Air 07/18/18 09:00 98.6 96 20 113/66 (82) 96 07/18/18 04:00 97.7 71 18 125/69 (87) 98 07/18/18 00:00 97.9 85 18 131/66 (87) 98 07/17/18 21:00 Room Air Intake and Output 07/17/18 07/18/18 19:00 07:00 Intake Total 2975 ml 1925 ml Output Total 2200 ml Balance 2975 ml -275 ml Intake Oral 1000 ml IV Total 975 ml 925 ml Other 2000 ml Output Urine Total 2200 ml # Bowel Movements 4 5 Height (Feet): 5 Height (Inches): 10.00 Weight (Pounds): 140 General Appearance: alert Objective PHYSICAL EXAMINATION: GENERAL: This is a young male, who is currently in the bed, comfortable, alert, and oriented x3. VITAL SIGNS: Reviewed and are wnl HEENT: NAD. CHEST: Bilaterally clear. CARDIOVASCULAR: Regular rhythm. No gallop. No murmur. ABDOMEN: Soft. Positive bowel sounds. EXTREMITIES: CCE. NEUROLOGICAL: No focal deficit. Eliud Lorenz MD Jul 18, 2018 20:04
[2018-07-18] MEDS: Depakote ER 250mg tab ORAL SCH (20:10)
[2018-07-18 21:27] LABS: BASOPHILS % (AUTO) 0.8 % (0.0-2.0); HEMATOCRIT 29.1 % (42.0-52.0); HEMOGLOBIN 9.1 G/DL (14.2-18.0); LYMPHOCYTES % (AUTO) 12.7 % (20.0-45.0); MEAN CORPUSCULAR VOLUME 90 FL (80-99); MONOCYTES % (AUTO) 9.3 % (1.0-10.0); NEUTROPHILS % (AUTO) 75.3 % (45.0-75.0); PLATELET COUNT 166 K/UL (150-450); RED BLOOD COUNT 3.23 M/UL (4.70-6.10); RED CELL DISTRIBUTION WIDTH 14.6 % (11.6-14.8); WHITE BLOOD COUNT 4.7 K/UL (4.8-10.8)
[2018-07-19] VITALS: BP 95/58
[2018-07-19 04:00] VITALS: BP 102/63
[2018-07-19 07:03] LABS: BASOPHILS % (AUTO) 0.4 % (0.0-2.0); HEMATOCRIT 32.4 % (42.0-52.0); HEMOGLOBIN 10.6 G/DL (14.2-18.0); MEAN CORPUSCULAR VOLUME 87 FL (80-99); MONOCYTES % (AUTO) 9.7 % (1.0-10.0); NEUTROPHILS % (AUTO) 72.9 % (45.0-75.0); PLATELET COUNT 185 K/UL (150-450); RED BLOOD COUNT 3.73 M/UL (4.70-6.10); RED CELL DISTRIBUTION WIDTH 14.8 % (11.6-14.8); WHITE BLOOD COUNT 4.3 K/UL (4.8-10.8)
[2018-07-19 07:12] LABS: ALANINE AMINOTRANSFERASE 68 U/L (12-78); ALBUMIN 1.1 G/DL (3.4-5.0); ALBUMIN/GLOBULIN RATIO 0.2 (1.0-2.7); ALKALINE PHOSPHATASE 124 U/L (46-116); ANION GAP 7 mmol/L (5-15); ASPARTATE AMINO TRANSFERASE 37 U/L (15-37); BILIRUBIN,TOTAL 0.2 MG/DL (0.2-1.0); BLOOD UREA NITROGEN 27 mg/dL (7-18); CALCIUM 7.8 MG/DL (8.5-10.1); CARBON DIOXIDE 21 MMOL/L (21-32); CHLORIDE 111 MMOL/L (98-107); CREATININE 3.2 MG/DL (0.55-1.30); PHOSPHORUS 3.5 MG/DL (2.5-4.9); POTASSIUM 5.2 MMOL/L (3.5-5.1); SODIUM 139 MMOL/L (136-145)
[2018-07-19 08:00] VITALS: BP 110/83
[2018-07-19] MEDS: Tamsulosin 0.4mg cap ORAL SCH ×2 (08:54→17:16)
[2018-07-19] MEDS ORDERED: Sodium Polystyrene Sulfonate 15gm Powder ORAL SCH (11:40)
--- NOTE | 2018-07-19 11:58 | Nephrology Progress Note ---
Assessment/Plan Problem List: (1) ARF (acute renal failure) (2) Proteinuria Assessment: Nephrotic range (3) Hydronephrosis determined by ultrasound (4) Dehydration (5) Anemia (6) HIV disease (7) Elevated hemoglobin A1c Assessment renal failure ? Acute on Chronic Dehydration Anemia proteinuria and hypoalbuminemia HypoCalcemia corrects for low Albumin Plan hydrate 24 h urine protein anemia tidwell monitor renal paraneters avoid nephrotoxics urine studies ID advise? Uro advise? ? Kidney Biopsy? BELKIS: 1. Increased echogenicity bilateral kidneys, maybe medical renal disease. 2. Mild bilateral hydronephrosis. Trace right perinephric fluid. 3. Tiny nonobstructive right renal stone. Subjective ROS Limited/Unobtainable: No Constitutional: Reports: weakness Objective Objective Last 24 Hour Vital Signs Date Time Temp Pulse Resp B/P (MAP) Pulse Ox O2 Delivery O2 Flow Rate FiO2 07/19/18 09:00 Room Air 07/19/18 08:00 97.5 128 20 110/83 (92) 100 07/19/18 04:00 98.5 109 18 102/63 (76) 98 07/19/18 00:00 98.4 103 18 95/58 (70) 96 07/18/18 21:00 Room Air 07/18/18 20:00 98.0 103 18 116/79 (91) 98 07/18/18 16:00 98.8 92 20 117/68 (84) 98 07/18/18 12:00 98.3 89 19 118/65 (82) 96 Intake and Output 07/18/18 07/19/18 19:00 07:00 Intake Total 2300 ml 1960 ml Output Total 2700 ml Balance 2300 ml -740 ml Intake Oral 1600 ml IV Total 700 ml 1000 ml Other 960 ml Output Urine Total 2700 ml # Voids 10 # Bowel Movements 1 Laboratory Tests 07/18/18 21:00: White Blood Count 4.7L, Red Blood Count 3.23L, Hemoglobin 9.1L, Hematocrit 29.1L , Mean Corpuscular Volume 90, Mean Corpuscular Hemoglobin 28.1, Mean Corpuscular Hemoglobin Concent 31.3L, Red Cell Distribution Width 14.6, Platelet Count 166, Mean Platelet Volume 8.4, Neutrophils (%) (Auto) 75.3H, Lymphocytes (%) (Auto) 12.7L, Monocytes (%) (Auto) 9.3, Eosinophils (%) (Auto) 2.0, Basophils (%) (Auto) 0.8, Hepatitis A IgM Antibody [Pending], Hepatitis B Surface Antigen [Pending], Hepatitis B Core IgM Antibody [Pending], Hepatitis C Antibody [Pending] 07/19/18 06:30: White Blood Count 4.3L, Red Blood Count 3.73L, Hemoglobin 10.6L, Hematocrit 32.4L, Mean Corpuscular Volume 87, Mean Corpuscular Hemoglobin 28.3, Mean Corpuscular Hemoglobin Concent 32.6, Red Cell Distribution Width 14.8, Platelet Count 185, Mean Platelet Volume 7.8, Neutrophils (%) (Auto) 72.9, Lymphocytes (% ) (Auto) 15.0L, Monocytes (%) (Auto) 9.7, Eosinophils (%) (Auto) 2.0, Basophils (%) (Auto) 0.4, Sodium Level 139, Potassium Level 5.2H, Chloride Level 111H, Carbon Dioxide Level 21, Anion Gap 7, Blood Urea Nitrogen 27H, Creatinine 3.2H, Estimat Glomerular Filtration Rate 27.8, Glucose Level 81, Calcium Level 7.8L, Phosphorus Level 3.5, Magnesium Level 1.7L, Total Bilirubin 0.2, Aspartate Amino Transf (AST/SGOT) 37, Alanine Aminotransferase (ALT/SGPT) 68, Alkaline Phosphatase 124H, C-Reactive Protein, Quantitative < 0.4, Pro-B-Type Natriuretic Peptide 1094H, Total Protein 6.4, Albumin 1.1L, Globulin 5.3, Albumin/Globulin Ratio 0.2L Height (Feet): 5 Height (Inches): 10.00 Weight (Pounds): 140 General Appearance: no apparent distress Cardiovascular: tachycardia Respiratory/Chest: decreased breath sounds Objective no change Johnson Thakkar MD Jul 19, 2018 11:58
[2018-07-19 12:00] VITALS: BP 106/74
[2018-07-19] MEDS ORDERED: Sodium Polystyrene Sulfonate 15gm Powder ORAL ONE (12:00)
--- NOTE | 2018-07-19 12:25 | General Progress Note ---
Assessment/Plan Problem List: (1) MDD (major depressive disorder), recurrent episode ICD Codes: F33.9 - Major depressive disorder, recurrent, unspecified SNOMED: 619460395 (2) Alcohol abuse ICD Codes: F10.10 - Alcohol abuse, uncomplicated SNOMED: [id number] Status: stable Assessment/Plan depakote risperdal provided ro/st dc when medically cleared crush the meds and administer Subjective Neurologic/Psychiatric: Reports: anxiety Allergies: Coded Allergies: SULFAMETHOXAZOLE (Verified Allergy, Intermediate, 07/15/18) TRIMETHOPRIM (Verified Allergy, Intermediate, 07/15/18) Subjective the pt now stated that he cannot walk the pt doesn't want to go to the bathroom the pt is cheeking meds cont to co meds Objective Last 24 Hour Vital Signs Date Time Temp Pulse Resp B/P (MAP) Pulse Ox O2 Delivery O2 Flow Rate FiO2 07/19/18 09:00 Room Air 07/19/18 08:00 97.5 128 20 110/83 (92) 100 07/19/18 04:00 98.5 109 18 102/63 (76) 98 07/19/18 00:00 98.4 103 18 95/58 (70) 96 07/18/18 21:00 Room Air 07/18/18 20:00 98.0 103 18 116/79 (91) 98 07/18/18 16:00 98.8 92 20 117/68 (84) 98 Intake and Output 07/18/18 07/19/18 19:00 07:00 Intake Total 2300 ml 1960 ml Output Total 2700 ml Balance 2300 ml -740 ml Intake Oral 1600 ml IV Total 700 ml 1000 ml Other 960 ml Output Urine Total 2700 ml # Voids 10 # Bowel Movements 1 Laboratory Tests 07/18/18 21:00: White Blood Count 4.7L, Red Blood Count 3.23L, Hemoglobin 9.1L, Hematocrit 29.1L , Mean Corpuscular Volume 90, Mean Corpuscular Hemoglobin 28.1, Mean Corpuscular Hemoglobin Concent 31.3L, Red Cell Distribution Width 14.6, Platelet Count 166, Mean Platelet Volume 8.4, Neutrophils (%) (Auto) 75.3H, Lymphocytes (%) (Auto) 12.7L, Monocytes (%) (Auto) 9.3, Eosinophils (%) (Auto) 2.0, Basophils (%) (Auto) 0.8, Hepatitis A IgM Antibody [Pending], Hepatitis B Surface Antigen [Pending], Hepatitis B Core IgM Antibody [Pending], Hepatitis C Antibody [Pending] 07/19/18 06:30: White Blood Count 4.3L, Red Blood Count 3.73L, Hemoglobin 10.6L, Hematocrit 32.4L, Mean Corpuscular Volume 87, Mean Corpuscular Hemoglobin 28.3, Mean Corpuscular Hemoglobin Concent 32.6, Red Cell Distribution Width 14.8, Platelet Count 185, Mean Platelet Volume 7.8, Neutrophils (%) (Auto) 72.9, Lymphocytes (% ) (Auto) 15.0L, Monocytes (%) (Auto) 9.7, Eosinophils (%) (Auto) 2.0, Basophils (%) (Auto) 0.4, Sodium Level 139, Potassium Level 5.2H, Chloride Level 111H, Carbon Dioxide Level 21, Anion Gap 7, Blood Urea Nitrogen 27H, Creatinine 3.2H, Estimat Glomerular Filtration Rate 27.8, Glucose Level 81, Calcium Level 7.8L, Phosphorus Level 3.5, Magnesium Level 1.7L, Total Bilirubin 0.2, Aspartate Amino Transf (AST/SGOT) 37, Alanine Aminotransferase (ALT/SGPT) 68, Alkaline Phosphatase 124H, C-Reactive Protein, Quantitative < 0.4, Pro-B-Type Natriuretic Peptide 1094H, Total Protein 6.4, Albumin 1.1L, Globulin 5.3, Albumin/Globulin Ratio 0.2L Height (Feet): 5 Height (Inches): 10.00 Weight (Pounds): 140 General Appearance: alert, cachetic Neurologic: oriented x 3, responsive, depressed affect Zhanna Tucker MD Jul 19, 2018 12:25
--- NOTE | 2018-07-19 13:05 | Diagnostic Imaging Report ---
Indication: Cough Comparison: None A single view chest radiograph was obtained. Findings: Lungs are hyperexpanded. Heart size is normal. Bones are unremarkable. Right costophrenic angle may be slightly blunted. IMPRESSION: Small right pleural effusion not excluded. Negative exam otherwise.
--- NOTE | 2018-07-19 13:53 | Cardiology Report ---
APPROVED REPORT EXAM: Two-dimensional and M-mode echocardiogram with Doppler and color Doppler. INDICATION Congestive Heart Failure M-Mode DIMENSIONS IVSd1.0 (0.7-1.1cm)Left Atrium (MM)2.3 (1.6-4.0cm) LVDd3.8 (3.5-5.6cm)Aortic Root3.0 (2.0-3.7cm) PWd1.1 (0.7-1.1cm)Aortic Cusp Exc.1.8 (1.5-2.0cm) IVSs1.2 cm LVDs2.8 (2.5-4.0cm) PWs1.0 cm Normal left ventricular chamber size, systolic function and wall motion. Left ventricular ejection fraction estimated to be 60-65%. Mild left ventricular hypertrophy by 2-D. No evidence of pericardial effusion. All other cardiac chamber sizes are within normal limits. Mild aortic valve sclerosis with adequate cusp excursion. Thickened mitral valve leaflets with normal excursion. Annulus and aortic root calcification. Pulmonic valve not well visualized. IVC at normal size with physiologic collapse . A color flow and spectral Doppler study was performed and revealed: No aortic insufficiency . Normal left ventricular diastolic function . Trace mitral regurgitation. Mild tricuspid regurgitation. Tricuspid systolic velocities suggests peak right ventricular systolic pressure of 30mmHg.
[2018-07-19 15:57] VITALS: BP 115/78
[2018-07-19] MEDS ORDERED: RISPERDAL2 MG ORAL (18:56)
[2018-07-19] MEDS ORDERED: TAMSULOSIN HCL0.4 MG ORAL (18:56)
[2018-07-19] MEDS ORDERED: DEPAKOTE ER250 MG ORAL (18:57)
[2018-07-19] MEDS ORDERED: NEPHROVITE1 TAB ORAL (18:58)
--- NOTE | 2018-07-19 19:45 | Progress Note ---
DATE: 07/19/2018 HISTORY: This is 32-year-old male, who came to the emergency room for altered mental status, confusion, psychosis, and agitation. The patient was also found to have acute renal failure, which has progressed. The patient recently claimed that he has human immunodeficiency virus and has been not taking medication for the last 10 years. The patient is otherwise asymptomatic. His BUN and creatinine is still high and discussed with Dr. Thakkar. ID consult was obtained. The patient is clinically doing better. Waiting for ID consult. Discharge plan home or [facility]. Duong Christine M.D. DR: CHLOE JOB#: [id number] CC:
--- NOTE | 2018-07-19 19:45 | Discharge Summary ---
DATE OF ADMISSION: 07/16/2018 DATE OF DISCHARGE: 07/19/2018 DISCHARGE DIAGNOSES: 1. Psychosis. 2. Depression. 3. Agitation. 4. Renal failure. DIET: He is on renal diet. ACTIVITY: As tolerated. DISCHARGE MEDICATIONS: The patient was given a prescription for Depakote ER 750 mg p.o. at bedtime, Risperdal 2 mg b.i.d., Flomax 0.4 mg daily, and Nephro-Beau 1 capsule daily. Duong Christine M.D. DR: CHLOE JOB#: [id number] CC:
[2018-07-19 20:00] VITALS: BP 105/67
--- NOTE | 2018-07-19 20:15 | General Progress Note ---
Assessment/Plan Assessment/Plan ASSESSMENT/RECOMMENDATIONS: # Anemia of chronic disease due to underlying chronic medical issues, multifactorial --> Anemia workup has been ordered and reviewed, and is cw acd --> No evidence of hemolysis is noted, peripheral smear has been reviewed. --> Hgb goal >7. Transfuse prn. --> Epogen or iron at this time is not particularly indicated --> Medications have been reviewed # Leukopenia likely medications or HIV/AIds related --> obtain ID eval on a prn basis --> rx as per ID # ARF (acute renal failure) --> Nephrology consult --> appreciate recs # Dehydration --->we will continue added IV fluid # HIV disease # Elevated hemoglobin A1c # Proteinuria The timing of this note does not necessarily reflect the time of the patient was seen Greatly appreciate consultation! Subjective Constitutional: Denies: no symptoms, chills, diaphoresis, fever, malaise, weakness, other HEENT: Denies: no symptoms, eye pain, blurred vision, tearing, double vision, ear pain, ear discharge, nose pain, nose congestion, throat pain, throat swelling, mouth pain, mouth swelling, other Cardiovascular: Denies: no symptoms, chest pain, edema, irregular heart rate, lightheadedness, palpitations, syncope, other Respiratory: Denies: no symptoms, cough, orthopnea, shortness of breath, SOB with excertion, SOB at rest, sputum, stridor, wheezing, other Genitourinary: Denies: no symptoms, burning, discharge, frequency, flank pain, hematuria, incontinence, pain, urgency, other Neurologic/Psychiatric: Denies: no symptoms, anxiety, depressed, emotional problems, headache, numbness, paresthesia, pre-existing deficit, seizure, tingling, tremors, weakness, other Endocrine: Denies: no symptoms, excessive sweating, flushing, intolerance to cold, intolerance to heat, increased hunger, increased thirst, increased urine, unexplained weight gain, unexplained weight loss, other Hematologic/Lymphatic: Denies: no symptoms, anemia, easy bleeding, easy bruising, other Allergies: Coded Allergies: SULFAMETHOXAZOLE (Verified Allergy, Intermediate, 07/15/18) TRIMETHOPRIM (Verified Allergy, Intermediate, 07/15/18) Subjective 2/4: no events, platelets stable, hiv was positive, renal evaluated, hgb lower today 2: potential dc shortly, prescriptions given by Dr. Christine Objective Last 24 Hour Vital Signs Date Time Temp Pulse Resp B/P (MAP) Pulse Ox O2 Delivery O2 Flow Rate FiO2 07/19/18 15:57 98.6 110 20 115/78 (90) 100 07/19/18 12:00 99.0 100 19 106/74 (85) 98 07/19/18 09:00 Room Air 07/19/18 08:00 97.5 128 20 110/83 (92) 100 07/19/18 04:00 98.5 109 18 102/63 (76) 98 07/19/18 00:00 98.4 103 18 95/58 (70) 96 07/18/18 21:00 Room Air Intake and Output 07/18/18 07/19/18 18:59 06:59 Intake Total 2300 ml 1960 ml Output Total 2700 ml Balance 2300 ml -740 ml Intake Oral 1600 ml IV Total 700 ml 1000 ml Other 960 ml Output Urine Total 2700 ml # Voids 10 # Bowel Movements 1 Laboratory Tests 07/18/18 21:00: White Blood Count 4.7L, Red Blood Count 3.23L, Hemoglobin 9.1L, Hematocrit 29.1L , Mean Corpuscular Volume 90, Mean Corpuscular Hemoglobin 28.1, Mean Corpuscular Hemoglobin Concent 31.3L, Red Cell Distribution Width 14.6, Platelet Count 166, Mean Platelet Volume 8.4, Neutrophils (%) (Auto) 75.3H, Lymphocytes (%) (Auto) 12.7L, Monocytes (%) (Auto) 9.3, Eosinophils (%) (Auto) 2.0, Basophils (%) (Auto) 0.8, Hepatitis A IgM Antibody [Pending], Hepatitis B Surface Antigen [Pending], Hepatitis B Core IgM Antibody [Pending], Hepatitis C Antibody [Pending] 07/19/18 06:30: White Blood Count 4.3L, Red Blood Count 3.73L, Hemoglobin 10.6L, Hematocrit 32.4L, Mean Corpuscular Volume 87, Mean Corpuscular Hemoglobin 28.3, Mean Corpuscular Hemoglobin Concent 32.6, Red Cell Distribution Width 14.8, Platelet Count 185, Mean Platelet Volume 7.8, Neutrophils (%) (Auto) 72.9, Lymphocytes (% ) (Auto) 15.0L, Monocytes (%) (Auto) 9.7, Eosinophils (%) (Auto) 2.0, Basophils (%) (Auto) 0.4, Sodium Level 139, Potassium Level 5.2H, Chloride Level 111H, Carbon Dioxide Level 21, Anion Gap 7, Blood Urea Nitrogen 27H, Creatinine 3.2H, Estimat Glomerular Filtration Rate 27.8, Glucose Level 81, Calcium Level 7.8L, Phosphorus Level 3.5, Magnesium Level 1.7L, Total Bilirubin 0.2, Aspartate Amino Transf (AST/SGOT) 37, Alanine Aminotransferase (ALT/SGPT) 68, Alkaline Phosphatase 124H, C-Reactive Protein, Quantitative < 0.4, Pro-B-Type Natriuretic Peptide 1094H, Total Protein 6.4, Albumin 1.1L, Globulin 5.3, Albumin/Globulin Ratio 0.2L Height (Feet): 5 Height (Inches): 5.00 Weight (Pounds): 104 Objective PHYSICAL EXAMINATION: GENERAL: This is a young male, who is currently in the bed, comfortable, alert, and oriented x3. VITAL SIGNS: Reviewed and are wnl HEENT: NAD. CHEST: Bilaterally clear. CARDIOVASCULAR: Regular rhythm. No gallop. No murmur. ABDOMEN: Soft. Positive bowel sounds. EXTREMITIES: CCE. NEUROLOGICAL: No focal deficits Eliud Lorenz MD Jul 19, 2018 20:15
[2018-07-19] MEDS: Depakote ER 250mg tab ORAL SCH (21:30)
[2018-07-20] VITALS: BP 118/72
[2018-07-20 04:00] VITALS: BP 114/75
[2018-07-20 05:23] LABS: EOSINOPHILS % (AUTO) 2.6 % (0.0-3.0); HEMATOCRIT 32.8 % (42.0-52.0); HEMOGLOBIN 10.6 G/DL (14.2-18.0); MEAN CORPUSCULAR VOLUME 88 FL (80-99); MONOCYTES % (AUTO) 9.7 % (1.0-10.0); NEUTROPHILS % (AUTO) 75.7 % (45.0-75.0); PLATELET COUNT 175 K/UL (150-450); RED BLOOD COUNT 3.73 M/UL (4.70-6.10); RED CELL DISTRIBUTION WIDTH 14.9 % (11.6-14.8); WHITE BLOOD COUNT 4.4 K/UL (4.8-10.8)
[2018-07-20 06:11] LABS: ALANINE AMINOTRANSFERASE 67 U/L (12-78); ALBUMIN 1.2 G/DL (3.4-5.0); ALBUMIN/GLOBULIN RATIO 0.2 (1.0-2.7); ALKALINE PHOSPHATASE 121 U/L (46-116); ANION GAP 8 mmol/L (5-15); ASPARTATE AMINO TRANSFERASE 35 U/L (15-37); BILIRUBIN,TOTAL 0.3 MG/DL (0.2-1.0); BLOOD UREA NITROGEN 33 mg/dL (7-18); CALCIUM 7.7 MG/DL (8.5-10.1); CARBON DIOXIDE 20 MMOL/L (21-32); CHLORIDE 108 MMOL/L (98-107); CREATININE 3.3 MG/DL (0.55-1.30); PHOSPHORUS 3.6 MG/DL (2.5-4.9); SODIUM 136 MMOL/L (136-145)
[2018-07-20 08:00] VITALS: BP 127/77
[2018-07-20] MEDS: Tamsulosin 0.4mg cap ORAL SCH (09:02)
--- NOTE | 2018-07-20 10:44 | Nephrology Progress Note ---
Assessment/Plan Problem List: (1) ARF (acute renal failure) (2) Proteinuria Assessment: Nephrotic range (3) Hydronephrosis determined by ultrasound (4) Dehydration (5) Anemia (6) HIV disease (7) Elevated hemoglobin A1c Assessment renal failure ? Acute on Chronic Dehydration Anemia proteinuria and hypoalbuminemia HypoCalcemia corrects for low Albumin Plan patient presented with kidney Bx suggestion, he will think about it. if discharged, can be done as out patient meanwhile monitor renal paraneters avoid nephrotoxics ID advise? Uro advise? ? Kidney Biopsy? BELKIS: 1. Increased echogenicity bilateral kidneys, maybe medical renal disease. 2. Mild bilateral hydronephrosis. Trace right perinephric fluid. 3. Tiny nonobstructive right renal stone. Subjective ROS Limited/Unobtainable: No Constitutional: Reports: malaise Objective Objective Last 24 Hour Vital Signs Date Time Temp Pulse Resp B/P (MAP) Pulse Ox O2 Delivery O2 Flow Rate FiO2 07/20/18 09:00 Room Air 07/20/18 08:00 98.1 99 19 127/77 (94) 99 07/20/18 04:13 99.0 07/20/18 04:00 98.7 90 20 114/75 (88) 100 07/20/18 00:00 99.0 101 18 118/72 (87) 99 07/19/18 20:50 Room Air 07/19/18 20:00 99.5 100 20 105/67 (80) 98 07/19/18 15:57 98.6 110 20 115/78 (90) 100 07/19/18 12:00 99.0 100 19 106/74 (85) 98 Intake and Output 07/19/18 07/20/18 19:00 07:00 Intake Total 1070 ml 1220 ml Output Total 850 ml 1100 ml Balance 220 ml 120 ml Intake Oral 780 ml 1220 ml IV Total 290 ml Output Urine Total 850 ml 1100 ml # Voids 2 3 # Bowel Movements 1 1 Current Medications Medications (Trade) Dose Ordered Sig/Bridget Route PRN Reason Start Time Stop Time Status Last Admin Dose Admin Acetaminophen (Tylenol) 650 mg Q4H PRN ORAL Mild Pain/Temp > 100.5 07/17/18 06:45 08/15/18 10:44 07/20/18 03:43 Divalproex Sodium (Depakote ER) 750 mg BEDTIME ORAL 2/4/19 21:00 08/17/18 20:59 07/19/18 21:30 Lorazepam (Ativan) 1 mg Q6H PRN ORAL For Anxiety 07/17/18 11:15 07/23/18 11:14 Magnesium Oxide (Mag-Ox 400mg) 400 mg THREE TIMES A DAY ORAL 07/20/18 13:00 08/19/18 12:59 UNV Risperidone (RisperDAL) 2 mg BID ORAL 07/18/18 10:30 08/17/18 10:29 07/20/18 09:02 Sodium Chloride 1,000 ml @ 100 mls/hr Q10H IV 07/17/18 06:15 08/15/18 10:44 07/19/18 02:00 Tamsulosin HCl (Flomax) 0.4 mg BID ORAL 07/18/18 18:00 08/16/18 17:59 07/20/18 09:02 Laboratory Tests 07/20/18 05:00: White Blood Count 4.4L, Red Blood Count 3.73L, Hemoglobin 10.6L, Hematocrit 32.8L, Mean Corpuscular Volume 88, Mean Corpuscular Hemoglobin 28.4, Mean Corpuscular Hemoglobin Concent 32.3, Red Cell Distribution Width 14.9H, Platelet Count 175, Mean Platelet Volume 7.6, Neutrophils (%) (Auto) 75.7H, Lymphocytes (%) (Auto) 11.0L, Monocytes (%) (Auto) 9.7, Eosinophils (%) (Auto) 2.6, Basophils (%) (Auto) 1.0, Sodium Level 136, Potassium Level 5.0, Chloride Level 108H, Carbon Dioxide Level 20L, Anion Gap 8, Blood Urea Nitrogen 33H, Creatinine 3.3H, Estimat Glomerular Filtration Rate 26.8, Glucose Level 112H, Calcium Level 7.7L, Phosphorus Level 3.6, Magnesium Level 1.5L, Total Bilirubin 0.3, Aspartate Amino Transf (AST/SGOT) 35, Alanine Aminotransferase (ALT/SGPT) 67, Alkaline Phosphatase 121H, Total Protein 6.5, Albumin 1.2L, Globulin 5.3, Albumin/Globulin Ratio 0.2L Height (Feet): 5 Height (Inches): 5.00 Weight (Pounds): 103 General Appearance: no apparent distress Cardiovascular: normal rate Respiratory/Chest: decreased breath sounds Abdomen: soft Objective no change Johnson Thakkar MD Jul 20, 2018 10:44
--- NOTE | 2018-07-20 11:28 | General Progress Note ---
Assessment/Plan Assessment/Plan ASSESSMENT/RECOMMENDATIONS: # Anemia of chronic disease due to underlying chronic medical issues, multifactorial --> Anemia workup has been ordered and reviewed, and is cw acd --> No evidence of hemolysis is noted, peripheral smear has been reviewed. --> Hgb goal >7. Transfuse prn. --> Epogen or iron at this time is not particularly indicated --> Medications have been reviewed # Leukopenia likely medications or HIV/AIds related --> obtain ID eval on a prn basis --> rx as per ID # ARF (acute renal failure) --> Nephrology consult --> appreciate recs # Dehydration --->we will continue added IV fluid # HIV disease # Elevated hemoglobin A1c # Proteinuria The timing of this note does not necessarily reflect the time of the patient was seen Greatly appreciate consultation! Subjective Allergies: Coded Allergies: SULFAMETHOXAZOLE (Verified Allergy, Intermediate, 07/15/18) TRIMETHOPRIM (Verified Allergy, Intermediate, 07/15/18) Subjective 07/18: no events, platelets stable, hiv was positive, renal evaluated, hgb lower today 07/19: potential dc shortly, prescriptions given by Dr. Christine 07/20: pending d/c, waiting until patient has plan for kidney follow up post discharge. Will continue to monitor. Objective Last 24 Hour Vital Signs Date Time Temp Pulse Resp B/P (MAP) Pulse Ox O2 Delivery O2 Flow Rate FiO2 07/20/18 09:00 Room Air 07/20/18 08:00 98.1 99 19 127/77 (94) 99 07/20/18 04:13 99.0 07/20/18 04:00 98.7 90 20 114/75 (88) 100 07/20/18 00:00 99.0 101 18 118/72 (87) 99 07/19/18 20:50 Room Air 07/19/18 20:00 99.5 100 20 105/67 (80) 98 07/19/18 15:57 98.6 110 20 115/78 (90) 100 07/19/18 12:00 99.0 100 19 106/74 (85) 98 Intake and Output 07/19/18 07/20/18 19:00 07:00 Intake Total 1070 ml 1220 ml Output Total 850 ml 1100 ml Balance 220 ml 120 ml Intake Oral 780 ml 1220 ml IV Total 290 ml Output Urine Total 850 ml 1100 ml # Voids 2 3 # Bowel Movements 1 1 Laboratory Tests 07/20/18 05:00: White Blood Count 4.4L, Red Blood Count 3.73L, Hemoglobin 10.6L, Hematocrit 32.8L, Mean Corpuscular Volume 88, Mean Corpuscular Hemoglobin 28.4, Mean Corpuscular Hemoglobin Concent 32.3, Red Cell Distribution Width 14.9H, Platelet Count 175, Mean Platelet Volume 7.6, Neutrophils (%) (Auto) 75.7H, Lymphocytes (%) (Auto) 11.0L, Monocytes (%) (Auto) 9.7, Eosinophils (%) (Auto) 2.6, Basophils (%) (Auto) 1.0, Sodium Level 136, Potassium Level 5.0, Chloride Level 108H, Carbon Dioxide Level 20L, Anion Gap 8, Blood Urea Nitrogen 33H, Creatinine 3.3H, Estimat Glomerular Filtration Rate 26.8, Glucose Level 112H, Calcium Level 7.7L, Phosphorus Level 3.6, Magnesium Level 1.5L, Total Bilirubin 0.3, Aspartate Amino Transf (AST/SGOT) 35, Alanine Aminotransferase (ALT/SGPT) 67, Alkaline Phosphatase 121H, Total Protein 6.5, Albumin 1.2L, Globulin 5.3, Albumin/Globulin Ratio 0.2L Height (Feet): 5 Height (Inches): 5.00 Weight (Pounds): 103 Objective PHYSICAL EXAMINATION: GENERAL: This is a young male, who is currently in the bed, comfortable, alert, and oriented x3. VITAL SIGNS: Reviewed and are wnl HEENT: NAD. CHEST: Bilaterally clear. CARDIOVASCULAR: Regular rhythm. No gallop. No murmur. ABDOMEN: Soft. Positive bowel sounds. EXTREMITIES: CCE. NEUROLOGICAL: No focal deficits Eliud Lorenz MD Jul 20, 2018 11:28
[2018-07-20 12:00] VITALS: BP 114/76
--- NOTE | 2018-07-20 12:53 | General Progress Note ---
Assessment/Plan Problem List: (1) MDD (major depressive disorder), recurrent episode ICD Codes: F33.9 - Major depressive disorder, recurrent, unspecified SNOMED: 450142984 (2) Alcohol abuse ICD Codes: F10.10 - Alcohol abuse, uncomplicated SNOMED: 93136108 Status: stable, progressing Assessment/Plan depakote risperdal provided ro/st dc when medically cleared crush the meds and administer Subjective Neurologic/Psychiatric: Reports: anxiety, depressed, emotional problems Allergies: Coded Allergies: SULFAMETHOXAZOLE (Verified Allergy, Intermediate, 07/15/18) TRIMETHOPRIM (Verified Allergy, Intermediate, 07/15/18) Subjective the pt is the same Objective Last 24 Hour Vital Signs Date Time Temp Pulse Resp B/P (MAP) Pulse Ox O2 Delivery O2 Flow Rate FiO2 07/20/18 12:00 98.0 99 22 114/76 (89) 99 07/20/18 09:00 Room Air 07/20/18 08:00 98.1 99 19 127/77 (94) 99 07/20/18 04:13 99.0 07/20/18 04:00 98.7 90 20 114/75 (88) 100 07/20/18 00:00 99.0 101 18 118/72 (87) 99 07/19/18 20:50 Room Air 07/19/18 20:00 99.5 100 20 105/67 (80) 98 07/19/18 15:57 98.6 110 20 115/78 (90) 100 Intake and Output 07/19/18 07/20/18 19:00 07:00 Intake Total 1070 ml 1220 ml Output Total 850 ml 1100 ml Balance 220 ml 120 ml Intake Oral 780 ml 1220 ml IV Total 290 ml Output Urine Total 850 ml 1100 ml # Voids 2 3 # Bowel Movements 1 1 Laboratory Tests 07/20/18 05:00: White Blood Count 4.4L, Red Blood Count 3.73L, Hemoglobin 10.6L, Hematocrit 32.8L, Mean Corpuscular Volume 88, Mean Corpuscular Hemoglobin 28.4, Mean Corpuscular Hemoglobin Concent 32.3, Red Cell Distribution Width 14.9H, Platelet Count 175, Mean Platelet Volume 7.6, Neutrophils (%) (Auto) 75.7H, Lymphocytes (%) (Auto) 11.0L, Monocytes (%) (Auto) 9.7, Eosinophils (%) (Auto) 2.6, Basophils (%) (Auto) 1.0, Sodium Level 136, Potassium Level 5.0, Chloride Level 108H, Carbon Dioxide Level 20L, Anion Gap 8, Blood Urea Nitrogen 33H, Creatinine 3.3H, Estimat Glomerular Filtration Rate 26.8, Glucose Level 112H, Calcium Level 7.7L, Phosphorus Level 3.6, Magnesium Level 1.5L, Total Bilirubin 0.3, Aspartate Amino Transf (AST/SGOT) 35, Alanine Aminotransferase (ALT/SGPT) 67, Alkaline Phosphatase 121H, Total Protein 6.5, Albumin 1.2L, Globulin 5.3, Albumin/Globulin Ratio 0.2L Height (Feet): 5 Height (Inches): 5.00 Weight (Pounds): 103 General Appearance: no apparent distress, alert Neurologic: oriented x 3, responsive, depressed affect Zhanna Tucker MD Jul 20, 2018 12:53
[2018-07-20] MEDS ORDERED: Magnesium Oxide 400mg tab ORAL SCH (13:00)
[2018-07-20] MEDS ORDERED: 1/2 NS 1000ml IV ONE ×2 (15:23→16:29)
[2018-07-20 16:00] VITALS: BP 108/70
--- NOTE | 2018-07-20 18:45 | Progress Note ---
DATE: 07/20/2018 SUBJECTIVE: This is an elderly male who is currently awake and comfortable. OBJECTIVE: VITAL SIGNS: Blood pressure 130/70, pulse 74, respirations 18. No fever. HEENT: NAD. CHEST: Bilaterally clear. CARDIOVASCULAR: Regular rhythm. No gallop. No murmur. ABDOMEN: Soft. Positive bowel sounds. Nontender. EXTREMITIES: CCE. NEUROLOGIC: No focal deficits. GENITOURINARY: Deferred. ASSESSMENT AND PLAN: 1. Acute renal insufficiency. 2. Depression. 3. HIV. 4. Psychosis. PLAN: 1. The patient is already on psychotropic and is doing better. 2. The patient also had renal insufficiency. Nephrology consult was obtained. 3. The patient was recommended to followup as an outpatient. 4. Discharge plan to for intermediate. 5. Discussed with the showcase maker and Dr. Thakkar. Duong Christine M.D. DR: Genevieve JOB#: [id number] CC:
--- NOTE | 2018-07-21 06:33 | Discharge Summary ---
Discharge Summary Discharge Summary _ Addendum: Patient was given order for discharge to snf, however, patient was not accepted. Patient was not discharged until full outpatient follow-up was arranged. workers' compensation commissioner spoke with patient regarding discharge plan. Patient was not receptive to senior care placement. He was cleared by psychiatry. He was recommended kidney biopsy and urological evaluation, which can be done as outpatient. His medications were filled by [facility] pharmacy. He was provided means for transportation. Arrangements for follow-up were made. Patient to follow-up at [facility] on 07/25/2018 at 9 AM; and with Dr. Villagomez (trauma registrar) on 08/04/2018 at 1:45 PM. Alondra Andrew NP Jul 21, 2018 06:33
== END 2018-07-20 16:30 | disposition home or self-care (01) | DRG 892 ==
LOC: EDBD 17:10 → EMR 17:24 → 4E 07-16 03:39 → EDBEDREQ 07-16 03:55 → EDBEDREQSVC 07-16 07:08 → EDBEDREQ 07-16 07:08 → 2E 07-16 08:31 → 4E 07-17 06:13
DX: E86.0 Dehydration (principal); B20 Human immunodeficiency virus [HIV] disease; N17.9 Acute kidney failure, unspecified; F33.3 Major depressive disorder, recurrent, severe with psychotic symptoms; Z59.0 Homelessness; E83.51 Hypocalcemia; F10.10 Alcohol abuse, uncomplicated; Y90.0 Blood alcohol level of less than 20 mg/100 ml; D63.8 Anemia in other chronic diseases classified elsewhere
CPT/HCPCS: 36415; 71045; 76770; 80048; 80053; 80061; 80307; 80329; 81003; 81050; 82550; 82607; 82728; 82746; 82977; 83036; 83540; 83550; 83735; 83880; 84100; 84156; 84300; 84443; 84550; 85025; 86140; 86689; 86703; 86705; 86709; 86803; 87045; 87081; 87324; 87340; 89050; 93005; 93306; 96361; 96365; 96375; 99285